=== PATIENT | female | born 1940 | race Hispanic/Latino ===

== ENCOUNTER 2019-11-23 09:53 | Outpatient (CLI) | payer MEDICARE ==
--- NOTE | 2019-11-23 13:26 | Mammography Report ---
BONE DEXA CLINICAL: Postmenopausal. TECHNIQUE: 2 site bone DEXA performed on an Hologic scanner. FINDINGS: The average BMD of the lumbar spine L1-L4 is 1.107g/cm squared with a T score of +0.5 and a Z score o f +3.3. The average total BMD of the right hip is 0.650 g/cm squared with a T score of -2.4and a Z score of - 0.3. IMPRESSION: 1. WHO classification: Normal with fracture risk based on spine measurements. 2. WHO classification Osteopenia with increased fracture risk based on left hip measurements. RECOMMENDATION: Clinical correlation and routine screening. Definitions: BMD equal bone mineral density T score = BMD related to peak bone mass of young adult (Shawn expressed an standard deviation) Z score = age-matched BMD expressed in SD World health organization (WHO) diagnostic criteria Normal T score greater than equal to 1 standard deviation Osteopenia T score between -1 and -2.4 standard deviation Osteoporosis T score -2.5 standard deviation or below. Note: BMD is not the only risk factor for fracture; also consider factors such as the patient's age, risk of falling, previous osteoporotic fracture, family history of osteoporotic fractures, current sm oker and low body weight. Z scores are not calculated if greater than 80 years of age. Signer Name: Arie Acevedo MD Signed: 11/23/2019 1:22 PM Workstation Name: [id number]
== END 2019-11-23 09:54 | disposition home or self-care (01) ==
LOC: SPVWC 09:53
PROVIDERS: ATTEND Internal Medicine Hematology & Oncology
DX: M85.89 Other specified disorders of bone density and structure, multiple sites (principal); I12.9 Hypertensive chronic kidney disease with stage 1 through stage 4 chronic kidney disease, or unspecified chronic kidney disease; N18.3 Chronic kidney disease, stage 3 (moderate); N18.4 Chronic kidney disease, stage 4 (severe); D63.1 Anemia in chronic kidney disease; C91.10 Chronic lymphocytic leukemia of B-cell type not having achieved remission; M54.5 Low back pain; M25.552 Pain in left hip; C43.9 Malignant melanoma of skin, unspecified; E66.3 Overweight; R22.9 Localized swelling, mass and lump, unspecified; Z08 Encounter for follow-up examination after completed treatment for malignant neoplasm; Z00.00 Encounter for general adult medical examination without abnormal findings; Z78.0 Asymptomatic menopausal state; Z79.899 Other long term (current) drug therapy; Z85.3 Personal history of malignant neoplasm of breast; Z86.39 Personal history of other endocrine, nutritional and metabolic disease
CPT/HCPCS: 77080